=== PATIENT | male | born 2000 | race Caucasian/White ===

== ENCOUNTER 2023-08-24 21:32 | Emergency (ER) | payer OTHER ==
--- NOTE | 2023-08-24 22:29 | ED Physician Documentation ---
PD HPI UPPER EXT INJURY - Stated complaint Stated Complaint: RT THUMB INJ - Chief complaint Chief Complaint: Ext Problem - History obtained from History obtained from: Patient - Additonal information Additional information: Right-handed 23-year-old gentleman who is active duty in the [employer] has been working hard over the last few days. 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 This evening without specific trauma develop pain at the base of the right thumb and difficulty with motion. Declines pain medication on initial evaluation. PD PAST MEDICAL HISTORY - Past Medical History Past Medical History: No Cardiovascular: None Respiratory: None Neuro: None Endocrine/Autoimmune: None GI: None : None HEENT: None Psych: None Musculoskeletal: None Derm: None - Past Surgical History Past Surgical History: No - Present Medications Home Medications: Ambulatory Orders Medication Instructions Recorded Confirmed No Known Home Medications 08/25/23 08/25/23 - Allergies Allergies/Adverse Reactions: Allergies Allergy/AdvReac Type Severity Reaction Status Date / Time No Known Drug Allergies Allergy Verified 08/24/23 22:19 - Social History Does the pt smoke?: No Smoking Status: Never smoker Does the pt drink ETOH?: No Does the pt have substance abuse?: No - Immunizations Immunizations are current?: Yes PD ED PE NORMAL - Vitals Vital signs reviewed: Yes - General General: Alert and oriented X 3, No acute distress - Extremities Extremities: Other (Tender over the PIP of the right thumb and a lot of pain with any range of motion especially flexion. Unable to tolerate de Quervain's testing.) - Neuro Neuro: Alert and oriented X 3, Normal speech Results - Vitals Vitals: Vital Signs - 24 hr 08/24/23 08/25/23 08/25/23 22:19 00:25 01:35 Temperature 36.8 C 36.9 C Heart Rate 64 64 65 Respiratory 16 15 16 Rate Blood Pressure 150/87 H 143/75 H 136/79 H O2 Saturation 100 98 99 Oxygen O2 Source Room air PD Medical Decision Making - ED course ED course: 23yo male with likely dequervains R thumb. No e/o infection. S/o overnight ED MD pending xrays. Departure - Departure Disposition: 01 Home, Self Care Clinical Impression: De Quervain's tenosynovitis, right Condition: Good Record reviewed to determine appropriate education?: Yes Instructions: ED De Quervain Tenosynovitis Comments: As discussed, your examination is consistent with a tenosynovitis of the left thumb. This is an overuse injury. You should take an anti-inflammatory such as Motrin or Aleve per package instructions and [place] Until then wear the Velcro splint when doing anything, you do not need to wear it sleeping or bathing. Forms: PCP List, Activity restrictions Discharge Date/Time: 08/25/23 01:42
--- NOTE | 2023-08-25 01:10 | XRAY Report ---
PROCEDURE: Finger(s) RT INDICATIONS: Trauma TECHNIQUE: AP hand, 2 views of the first finger(s) acquired. COMPARISON: None. FINDINGS: Bones: No fractures or dislocations. No suspicious bony lesions. Soft tissues: No suspicious soft tissue calcifications or masses. IMPRESSION: No acute bony abnormality. Reviewed by: Vickie Lopez MD on 08/25/2023 1:[address] [facility] Approved by: Vickie Lopez MD on 08/25/2023 1:[address] [facility] Station ID: [id number]
--- NOTE | 2023-08-25 01:10 | XRAY Report ---
PROCEDURE: Hand 3+V RT INDICATIONS: Trauma TECHNIQUE: 3 views of the hand(s) acquired. COMPARISON: None. FINDINGS: Bones: No fractures or dislocations. No suspicious bony lesions. Soft tissues: No suspicious soft tissue calcifications or masses. IMPRESSION: No acute bony abnormality. Reviewed by: Vickie Lopez MD on 08/25/2023 1:08 AM [facility] Approved by: Vickie Lopez MD on 08/25/2023 1:08 AM [facility] Station ID: [id number]
--- NOTE | 2023-08-25 01:31 | ED Physician Documentation ---
ED Addendum - Addendum Addendum: 08/25/23 01:29 Patient received a signout from outgoing physician, please see their do cumentation for further detail. Patient signed out to me with imaging of thumb and hand pending. X-rays and radiology reports reviewed. No acute abnormality. Concur with off going physician's assessment. Dequervain;s tenosynovitis remains high on the differential given his presentation. Will move forward with splinting with instructions for conservative management and encouragement for careful follow-up with PCP. Clear return precautions given.
[2023-08-25 01:44] VITALS: BP 136/79; O2SAT 99
== END 2023-08-25 01:42 | disposition home or self-care (01) ==
LOC: ED 21:32
DX: M65.4 Radial styloid tenosynovitis [de Quervain] (principal)
CPT/HCPCS: 99283